=== PATIENT | male | born 1945 | race Caucasian/White ===

== ENCOUNTER 2025-08-17 13:16 | Emergency (ER) | payer MEDICARE, SELFPAY ==
[2025-08-17 13:18] VITALS: BP 133/70
[2025-08-17 13:54] LABS: Hematocrit 43.1 % (39.0-52.0); Hemoglobin 13.7 g/dL (13.0-18.0); Mean Corp Hgb Conc. 31.8 g/dL (33.0-37.0); Mean Corpuscular Volume 99.8 fL (80.0-94.0); Nucleated Red Blood Cells % 0 % (-); Platelet Count 142 10^3/uL (130-400); Red Cell Dist. Width 12.4 % (11.5-14.5)
[2025-08-17 14:08] LABS: ALT (SGPT) 31 U/L (0-50); AST (SGOT) 38 U/L (17-59); Albumin 4.2 g/dl (3.5-5.0); Alkaline Phosphatase 60 U/L (38-126); Blood Urea Nitrogen 20 mg/dl (9-20); Calcium 9.3 mg/dl (8.4-10.2); Carbon Dioxide 28 mmol/L (22-30); Chloride 105 mmol/L (98-107); Glucose 97 mg/dl (70-99); Lipase 103 U/L (23-300); Potassium 4.0 mmol/L (3.5-5.1); Sodium 139 mmol/L (135-145); Total Protein 6.6 g/dl (6.3-8.2); eGFR > 60.00
[2025-08-17 16:00] VITALS: BP 129/81
--- NOTE | 2025-08-17 16:43 | ED.GENMED ---
History of Present Illness
General
Chief Complaint: Abdominal Symptoms
Time Seen by Provider: 08/17/25 16:15
History of Present Illness
History of Present Illness:
79-year-old male with history of hyperlipidemia presents to the emergency department for evaluation of left lower quadrant pain occurring intermittently for the past 2 weeks. Seems to be worse shortly after eating. Had 3 bowel movements today that
were unremarkable. Denies any fevers or chills, nausea or vomiting. No lower urinary tract voiding symptoms. Prior abdominal surgical history includes a right inguinal hernia repair and any radical prostatectomy
Review of Systems
Review of Systems
Allergies reviewed?: Yes
All Other Systems: ROS reviewed and negative except as documented in HPI and ROS
Phy Exam
Physical Exam
Physical Exam:
GEN: Well appearing, NAD, WDWN
HEENT: Oral mucosa moist, no scleral icterus
Cardiac: Regular rate
Lung: No respiratory distress, no tachypnea
Abdomen: Soft, grossly nontender, no palpable masses
MSK: No gross deformity or injuries
Skin: Good color, no pallor or jaundice, no rashes
Neuro: AO x3, moves all extremities freely
Psych: Calm, cooperative
Course
Orders/Labs/Results
Orders:
Orders
08/17/25 13:28
Complete Blood Count/With Diff Urgent
Comprehensive Metabolic Panel Urgent
Lipase Urgent
08/17/25 16:42
CT Abd/Pel (IV only)-DH only Urgent
Comment:
Reason For Exam: LLQ pain
Abnormal Lab Results
08/17/25
13:28
RBC 4.32 L 10^6/uL
(4.70-6.10)
MCV 99.8 H fL
(80.0-94.0)
MCH 31.7 H pg
(27.0-31.0)
MCHC 31.8 L g/dL
(33.0-37.0)
Absolute Lymphs (auto) 1.1 L 10^3/uL
(1.2-3.4)
Absolute Monos (auto) 0.7 H 10^3/uL
(0.1-0.6)
Lymphocytes % 17.3 L %
(20.5-51.1)
Monocytes % 11.0 H %
(1.7-9.3)
08/17/25 13:28
08/17/25 13:28
Vital Signs
Initial and Last Documented VS:
Initial Vital Signs
Temp Pulse Resp BP Pulse Ox
97.5 F 54 18 133/70 98
08/17/25 13:18 08/17/25 13:18 08/17/25 13:18 08/17/25 13:18 08/17/25 13:18
Last Documented Vital Signs
Temp Pulse Resp BP Pulse Ox
97.5 F 54 18 129/81 98
08/17/25 13:18 08/17/25 13:18 08/17/25 13:18 08/17/25 16:00 08/17/25 16:43
MDM/Problems Addressed
MDM/Problems Addressed:
Imaging reveals a nonincarcerated hernia in the left inguinal region with loops of bowel, patient is asymptomatic with no signs of strangulation thus there is no urgent need for treatment of this. Recommend close outpatient surgery follow-up,
return parameters discussed
*Pulse Oximetry
SaO2: 98
Oxygen Mode of Delivery: Room air
Patient hypoxic: no
*Critical Care Note
Total Time (30-74mins, 75-104mins- exclusive of procedures): Not Applicable
ED Attending Note
-
Portions of this chart may have been created with voice recognition software.� Occasional wrong word or��sound alike� substitutions may have occurred due to the inherent limitations of voice recognition software.
Discharge Plan
Departure
Patient Disposition: Home (Routine Discharge)
Date of Disposition: 08/17/25
Time of Disposition: 18:36
Patient with high blood pressure during this ER visit?: No
Discharge Problem:
Hernia, inguinal, left
Instructions: Groin hernias
Referrals:
Gurjit Reyes MD [Family Provider]
Keven Edmond MD [Active, Surgical]
Interventions
Interventions:
*Risk Screen - Suicide Last Done: 08/17/25 13:18
*General Assessment Last Done: 08/17/25 13:18
*Neglect/Abuse Screening Last Done: 08/17/25 18:02
*ED- Fall Risk Assessment Last Done: 08/17/25 18:52
*ED COVID-19 Vaccine History Last Done: 08/17/25 18:02
*ED Influenza Vaccine History Last Done: 08/17/25 18:02
*Nursing Disposition Last Done: 08/17/25 18:52
DR-Hhpptt-Ohwnpzflkh Assessment Last Done: 08/17/25 16:48
Discharge Date and Time
Discharge Date/Time: 08/17/25 18:54
Print Language: BELARUSIAN
== END 2025-08-17 18:54 | disposition home or self-care (01) ==
LOC: EMR 13:16
PROVIDERS: Emergency Medicine; EMERGENCY PHYSICIAN Student in an Organized Health Care Education/Training Program; FAMILY PHYSICIAN Family Medicine
DX: K40.90 Unilateral inguinal hernia, without obstruction or gangrene, not specified as recurrent (principal); E78.5 Hyperlipidemia, unspecified
CPT/HCPCS: 99284; 74177; 80053; 83690; 85025; Q9967